=== PATIENT | male | born 1945 | race Caucasian/White ===

== ENCOUNTER 2019-11-23 10:10 | Inpatient (IN) ==
[2019-11-23 11:16] LABS: Basophils % 0.5 % (0.0-0.8); Eosinophils # 0.1 10*3/uL (0.0-0.87); Hematocrit 44.7 VOL% (42.0-52.0); Hemoglobin 15.2 GM/DL (14.0-18.0); Immature Granulocytes % 0.5 %; Immature Granulocytes Absolute 0.02 #; Lymphocytes # 0.7 10*3/uL (1.4-4.0); Lymphocytes % 16.5 % (21.2-54.2); Mean Corpuscular Volume 89.6 FL (87-102); Monocytes % 11.5 % (1.7-12.7); Red Blood Count 4.99 MC/CUMM (3.8-5.5); Red Cell Distribution Width 15.6 % (9.3-17.3)
[2019-11-23 11:17] LABS: Platelet Count 83 T/CUMM (130-400)
[2019-11-23] MEDS ORDERED: FUROSEMIDE 100 MG/10 ML VIAL IV STA (11:24)
[2019-11-23 11:32] LABS: Albumin 3.2 G/DL (3.4-5.0); Bilirubin,Total 2.1 MG/DL (0.2-1.0); Calcium 8.7 MG/DL (8.5-10.1); Osmolality,Calculated 281.1 MOS/KG (273-304); Total Protein 7.2 G/DL (6.4-8.3)
[2019-11-23 11:37] LABS: Hypochromasia 1+; Platelet Estimate Decreased
[2019-11-23 12:43] LABS: Ferritin 98.3 ng/ml (26-388)
[2019-11-23] MEDS ORDERED: ONDANSETRON 4 MG/2 ML VIAL IV PRN (12:56)
[2019-11-23] MEDS ORDERED: LACTULOSE 20 GM/30 ML UDCUP PO PRN (12:56)
[2019-11-23] MEDS ORDERED: ENOXAPARIN 40 MG/0.4 ML SYRINGE SUBCUT SCH (13:00)
[2019-11-23 14:43] LABS: INR 1.4; PT Patient Result 14.6 SECS (9.8-11.9); Partial Thromboplastin Time 33.7 SECS (23.9-33.8)
[2019-11-23] MEDS: FUROSEMIDE 40 MG/4 ML VIAL IV SCH (15:39)
[2019-11-23] MEDS: SODIUM CHLORIDE 0.45% 1,000 ML IV SCH (15:43)
[2019-11-23] MEDS ORDERED: GLUCAGON 1 MG VIAL IM PRN (15:55)
[2019-11-23] MEDS ORDERED: DEXTROSE 50% 25 GM/50 ML VIAL IV PRN (15:55)
[2019-11-23] MEDS ORDERED: TISSUE ADHESIVE 1 EACH APPLICATOR TOP ONE (16:55)
[2019-11-23 20:17] LABS: Neutrophils,Peritoneal Fluid 5 %
[2019-11-23 20:20] LABS: RBC,Peritoneal Fluid 2119 T/CUMM
[2019-11-23] MEDS ORDERED: TAMSULOSIN 0.4 MG CAPSULE PO SCH (21:00)
[2019-11-23] MEDS ORDERED: INSULIN GLARGINE 100 UNIT/ML SUBCUT SCH (21:00)
[2019-11-23] MEDS: SACUBITRIL/VALSARTAN 49-51 MG TABLET PO SCH (21:42)
[2019-11-23] MEDS: PROPRANOLOL 10 MG TABLET PO SCH (21:42)
[2019-11-24 06:44] LABS: Basophils % 0.3 % (0.0-0.8); Eosinophils # 0.1 10*3/uL (0.0-0.87); Eosinophils % 1.9 % (0.00-10.9); Hematocrit 40.4 VOL% (42.0-52.0); Lymphocytes # 0.6 10*3/uL (1.4-4.0); Lymphocytes % 16.3 % (21.2-54.2); Mean Corpuscular HGB Conc 34.7 GM/DL (32-36); Mean Corpuscular Volume 89.4 FL (87-102); Mean Platelet Volume 9.1 FL (9.6-12.0); Monocytes % 14.9 % (1.7-12.7); Neutrophils % 66.6 % (38.7-73.9); Red Blood Count 4.52 MC/CUMM (3.8-5.5); Red Cell Distribution Width 15.7 % (9.3-17.3); White Blood Count 3.7 T/CUMM (4-12)
[2019-11-24 06:46] LABS: Platelet Count 58 T/CUMM (130-400)
[2019-11-24 07:02] LABS: Blood Urea Nitrogen 14 MG/DL (7-18); Calcium 8.6 MG/DL (8.5-10.1); Estimated Glom Filtration Rate 112 ML/MIN; Glucose 128 MG/DL (74-106); Osmolality,Calculated 283.3 MOS/KG (273-304); Troponin I 0.024 NG/ML (0.00-0.045)
[2019-11-24 07:19] LABS: Hypochromasia Slight; Microcytosis 1+; Ovalocytes Slight; Platelet Estimate Decreased
[2019-11-24] MEDS ORDERED: ENOXAPARIN 40 MG/0.4 ML SYRINGE SUBCUT SCH (08:00)
[2019-11-24] MEDS ORDERED: MAGNESIUM SULF RIDER 2 GM in PREMIX 1 EACH IV ONE (08:01)
[2019-11-24] MEDS: PROPRANOLOL 10 MG TABLET PO SCH (08:06)
[2019-11-24] MEDS: FUROSEMIDE 40 MG/4 ML VIAL IV SCH ×2 (08:06→15:55)
[2019-11-24] MEDS ORDERED: POTASSIUM CHLORIDE 20 MEQ TABLET PO ONE (09:00)
[2019-11-24] MEDS ORDERED: DUTASTERIDE 0.5 MG CAPSULE PO SCH (09:00)
[2019-11-24] MEDS ORDERED: PANTOPRAZOLE 40 MG TABLET PO SCH (09:00)
[2019-11-24] MEDS ORDERED: ENOXAPARIN 150 MG/ML SYRINGE SUBCUT SCH (09:00)
[2019-11-24] MEDS ORDERED: SPIRONOLACTONE 25 MG TABLET PO SCH (09:00)
[2019-11-24] MEDS ORDERED: FENOFIBRATE 145 MG TABLET PO SCH (09:00)
[2019-11-24] MEDS: SACUBITRIL/VALSARTAN 49-51 MG TABLET PO SCH (09:29)
[2019-11-24 13:24] VITALS: BP 150/61
[2019-11-24] MEDS: SODIUM CHLORIDE 0.45% 1,000 ML IV SCH (15:55)
== END 2019-11-24 15:37 | disposition home or self-care (01) | DRG 441 ==
LOC: N.ED 10:10 → N.EDINP 12:56 → N.3E 13:43
PROVIDERS: ADMIT Family Medicine; ATTEND Family Medicine